=== PATIENT | male | born 1970 | race Caucasian/White ===

== ENCOUNTER → 2021-12-16 | Day surgery (SDC) | payer OTHER ==
[~2021-12-16] VITALS: Ht 188 cm; Wt 204.1 kg
[~2021-12-16] MED LIST: ALEVE220 MG PO; AMLODIPINE BES2.5 MG PO; FLOMAX0.4 MG PO; IBUPROFEN400 MG PO; LISINOPRIL20 MG PO
[2021-12-16 08:29] LABS: HCT 48.5 % (42.0-52.0); HGB 16.5 g/dl (13.2-18.0); MCV 85.2 fL (78.0-100.0); MPV 11.6 fL (6.0-9.5); RBC 5.69 M/uL (4.70-6.00); RDW 13.8 % (11.5-14.0)
[2021-12-16 08:49] LABS: ALBUMIN 3.4 g/dL (3.4-5.0); BILIRUBIN - TOTAL 0.8 mg/dL (0.2-1.0); BUN/CREAT RATIO (CALC) 9.6 RATIO; CREATININE 1.04 mg/dL (0.67-1.17); GLOBULIN (CALCULATION) 3.6 g/dL; POTASSIUM 4.5 mmol/L (3.5-5.1)
== END | disposition home or self-care (01) ==
LOC: FAS 07:47
PROVIDERS: Surgery
DX: Z12.11 Encounter for screening for malignant neoplasm of colon (principal); D12.5 Benign neoplasm of sigmoid colon; K57.30 Diverticulosis of large intestine without perforation or abscess without bleeding; I10 Essential (primary) hypertension; E78.5 Hyperlipidemia, unspecified; E66.01 Morbid (severe) obesity due to excess calories; Z68.43 Body mass index [BMI] 50.0-59.9, adult; Z79.899 Other long term (current) drug therapy
CPT/HCPCS: 36415; 80053; J1610; J2704; J7120